=== PATIENT | male | born 1990 | race African-American/Black ===

== ENCOUNTER 2019-02-27 21:03 | Emergency (ER) | payer OTHER ==
[~2019-02-27] VITALS: Ht 177.8 cm; Wt 60.6 kg
[2019-02-27 21:32] LABS: HEMATOCRIT 41.7 % (42.0-52.0); HEMOGLOBIN 14.3 gm/dL (14.0-18.0); MCH 29.6 pg (26.0-34.0); MCHC 34.3 g/dL (28.0-37.0); MCV 86.2 fL (80.0-100.0); NUCLEATED RBCS 0 /100WBC; PLATELET COUNT* 335 thou/uL (150-400); RBC 4.83 mil/uL (4.50-6.00); RDW-CV 14.1 % (10.5-14.5); WBC 7.4 thou/uL (4.0-11.0)
[2019-02-27 21:41] LABS: CALCIUM 8.9 mg/dL (8.5-10.1); CREATININE 0.9 mg/dL (0.6-1.3); POTASSIUM 3.6 mmol/L (3.5-5.1)
[2019-02-27 22:01] LABS: ABSOLUTE EOSINOPHILS 0.1 thou/uL (0.0-0.7); ABSOLUTE LYMPHOCYTES 0.8 thou/uL (0.8-5.3); ABSOLUTE MONOCYTES 0.2 thou/uL (0.0-1.2); ABSOLUTE NEUTROPHILS 6.3 thou/uL (1.6-8.1)
[2019-02-27 22:02] LABS: PLATELET ESTIMATE ADEQUATE
[2019-02-27 22:03] LABS: ALBUMIN 3.7 g/dL (3.4-5.0); TOTAL BILIRUBIN 0.4 mg/dL (<0.1-1.0); TOTAL PROTEIN 7.6 g/dL (6.4-8.2)
[2019-02-27] MEDS ORDERED: ONDANSETRON HCL4 M2 PO (22:34)
[2019-02-27 23:01] LABS: ACETAMINOPHEN < 2 ug/mL (10-30); SALICYLATE < 2.8 mg/dL (2.8-20.0)
[2019-02-28 01:27] VITALS: BP 116/56
--- NOTE | 2019-02-28 12:13 | EKG ---
[place] [address] ELECTROCARDIOGRAM REPORT Name: VERENICE UAGUSTE Room: [facility]#: [id number] Admission: 02/27/19 Attend Phys: Discharge: 02/28/19 Date of : 88 Report #: [id number] THIS REPORT FOR: //name// [facility] ED Test Date: 2019-02-27 Test Time: 21:33:26 Pat Name: VERENICE AUGUSTE Department: Room: Gender: M Authors Motivational: : 1990 Requested By: Katie Rabago Order Number: [id number] MD: Fernando Escudero Measurements Intervals [place] Rate: 87 P: 65 VA: 145 QRS: 35 QRSD: 91 T: 61 QT: 357 QTc: 430 Interpretive Statements Sinus rhythm ST elev, probable normal early repol pattern Baseline wander in lead(s) I,III,aVL No previous ECG available for comparison Electronically Signed On 02-28-2019 12:13:29 [employer]NAGER [employer] by Fernando Escudero [email or web address] <ELECTRONICALLY SIGNED> By: Fernando Escudero MD, [facility] 02/28/19 1213 32 32 Fernando Escudero MD, [facility] /EPI
== END 2019-02-28 01:27 | disposition home or self-care (01) ==
LOC: M.ERS 21:03
PROVIDERS: Nurse Practitioner Family
DX: R11.2 Nausea with vomiting, unspecified (principal); F19.10 Other psychoactive substance abuse, uncomplicated